=== PATIENT | female | born 1935 | race Caucasian/White ===

== ENCOUNTER 2018-03-02 10:54 | Emergency (ER) | payer MEDICARE, OTHER ==
[~2018-03-02] VITALS: Ht 162.6 cm; Wt 84.4 kg
[2018-03-02] MEDS ORDERED: Humulin N100 UNIT/1 SC ×2 (12:06→12:07)
[2018-03-02] MEDS ORDERED: LEVSOD88 PO (12:07)
[2018-03-02] MEDS ORDERED: AMLO5 PO (12:07)
[2018-03-02] MEDS ORDERED: LISI5 PO (12:07)
[2018-03-02] MEDS ORDERED: METO50 PO (12:08)
[2018-03-02] MEDS ORDERED: Simvastatin20 MG PO (12:09)
[2018-03-02] MEDS ORDERED: ASPI81CH PO (12:09)
[2018-03-02] MEDS ORDERED: OXYC5 PO (12:10)
[2018-03-02] MEDS ORDERED: Midodrine HCl10 MG PO (12:10)
[2018-03-02] MEDS ORDERED: Humalog100 UNIT/1 SC (12:17)
[2018-03-03] MEDS ORDERED: Ferrous Sulfat325 M2 PO (08:24)
[2018-03-03] MEDS ORDERED: Senna-Docusate1 EACH PO (08:25)
[2018-03-03] MEDS ORDERED: CYAN500 PO (08:26)
[2018-03-03] MEDS ORDERED: CHOL10002 PO (08:26)
[2018-03-03] MEDS ORDERED: LISI5 PO (13:01)
== END 2018-03-02 13:55 | disposition home or self-care (01) ==
LOC: ER 10:54
DX: L89.153 Pressure ulcer of sacral region, stage 3 (principal); E11.65 Type 2 diabetes mellitus with hyperglycemia; Z88.1 Allergy status to other antibiotic agents; Z88.8 Allergy status to other drugs, medicaments and biological substances; Z79.899 Other long term (current) drug therapy; Z79.4 Long term (current) use of insulin; Z79.82 Long term (current) use of aspirin
CPT/HCPCS: 82947; 99283; J1815